=== PATIENT | female | born 1975 | race Caucasian/White ===

== ENCOUNTER 2016-11-11 06:53 | Emergency (ER) | payer OTHER, BC ==
[2016-11-11] MEDS ORDERED: HYDROcodone/APAP 5-325MG 1 EACH TAB PO STA (07:29)
[2016-11-11] MEDS ORDERED: IBUPROFEN 800 MG TAB PO STA (07:29)
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
[2016-11-11 10:00] VITALS: BP 122/86; PULSE 80; RESP 20; TEMP 97.5
== END 2016-11-11 09:55 | disposition home or self-care (01) ==
LOC: EC 06:53
DX: T14.8 Other injury of unspecified body region (principal); K21.9 Gastro-esophageal reflux disease without esophagitis; F31.9 Bipolar disorder, unspecified; Z79.899 Other long term (current) drug therapy; V43.52XA Car driver injured in collision with other type car in traffic accident, initial encounter; Y92.410 Unspecified street and highway as the place of occurrence of the external cause
CPT/HCPCS: 70450; 72125; 72128; 99284

== ENCOUNTER 2021-09-27 08:31 | Observation (INO) | payer BC ==
[2021-09-27 09:09] LABS: Glucose,Whole Blood 98 mg/dL (75-99)
[2021-09-27 09:41] LABS: Basophils % (A) 0 %; Eosinophils # (A) 0.2 k/uL (0-0.7); Eosinophils % (A) 3 %; HCT 37.5 % (34.0-46.0); HGB 12.5 gm/dL (11.4-16.0); Lymphocytes % (A) 31 %; MCH 30.9 pg (25.0-35.0); MCHC 33.2 g/dL (31.0-37.0); Mean Platelet Volume 6.7; Monocytes # (A) 0.2 k/uL (0-1.0); Monocytes % (A) 4 %; Neutrophils # (A) 3.8 k/uL (1.3-7.7); Neutrophils % (A) 61 %; Platelet Count 266 k/uL (150-450); RBC 4.04 m/uL (3.80-5.40); RDW 13.5 % (11.5-15.5); WBC 6.3 k/uL (3.8-10.6)
[2021-09-27 09:55] LABS: ALT 24 U/L (4-34); AST 27 U/L (14-36); African American GFR (CKD) 89 (>60 ml/min/1.73 sqM); Alcohol <10 mg/dL; Alkaline Phosphatase 91 U/L (38-126); Anion Gap 6 mmol/L; Blood Urea Nitrogen 16 mg/dL (7-17); Calcium 9.1 mg/dL (8.4-10.2); Carbon Dioxide 30 mmol/L (22-30); Chloride 100 mmol/L (98-107); Glucose 97 mg/dL (74-99); Non-African American GFR(CKD) 77 (>60 ml/min/1.73 sqM); Potassium 4.2 mmol/L (3.5-5.1); Sodium 136 mmol/L (137-145); Total Bilirubin 0.5 mg/dL (0.2-1.3); Total Protein 6.7 g/dL (6.3-8.2)
[2021-09-27 10:06] LABS: Appearance,Urine Clear (Clear); Bilirubin,Urine Negative (Negative); Blood,Urine Negative (Negative); Color,Urine Yellow; Glucose,Urine (UA) Negative (Negative); Ketones,Urine Negative (Negative); Leukocyte Esterase,Urine Negative (Negative); Nitrite,Urine Negative (Negative); PH, Urine 6.5 (5.0-8.0); Protein,Urine Negative (Negative); Specific Gravity,Urine 1.025 (1.001-1.035); Urobilinogen,Urine <2.0 mg/dL (<2.0)
[2021-09-27 10:07] LABS: INR 0.9 (<1.2); Prothrombin Time 9.6 sec (9.0-12.0)
--- NOTE | 2021-09-27 10:07 | CT ---
EXAMINATION TYPE: CT brain wo con DATE OF EXAM: 09/27/2021 COMPARISON: 11/11/2016 HISTORY: altered mental status CT DLP: 1068.4 mGycm. Automated Exposure Control for Dose Reduction was Utilized. TECHNIQUE: CT scan of the head is performed without contrast. FINDINGS: There is no acute intracranial hemorrhage, mass effect, or midline shift identified. The ventricles and sulci are within normal limits in size. The globes are intact and the visualized sin uses are clear. IMPRESSION: No acute intracranial hemorrhage, mass effect, or midline shift is seen.
--- NOTE | 2021-09-27 10:08 | XR ---
EXAMINATION TYPE: XR chest 2V DATE OF EXAM: 09/27/2021 COMPARISON: 07/17/2012 HISTORY: Altered mental status TECHNIQUE: Frontal and lateral views of the chest are obtained. FINDINGS: There is no focal air space opacity, pleural effusion, or pneumothorax seen. The cardiac silhouette size is within normal limits. The osseous structures are intact. IMPRESSION: No acute cardiopulmonary process.
[2021-09-27 10:12] LABS: Partial Thromboplastin Time 21.7 sec (22.0-30.0)
[2021-09-27 10:25] LABS: Amphetamine Screen,Urine Not Detected (NotDetected); Barbiturate Screen,Urine Not Detected (NotDetected); Benzodiazepines Screen,Urine Detected (NotDetected); Cocaine Screen,Urine Not Detected (NotDetected); Methadone Screen, Urine Not Detected (NotDetected); Opiate Screen,Urine Not Detected (NotDetected); Oxycodone Screen, Urine Not Detected (NotDetected); Phencyclidine Screen,Urine Not Detected (NotDetected); Tricyclic Antidepressant,Urine Not Detected (NotDetected); Urn Cannabinoid Scrn Not Detected (NotDetected)
--- NOTE | 2021-09-27 10:29 | ED ---
General Adult HPI - General Chief complaint: Weakness Stated complaint: AMS Time Seen by Provider: 09/27/21 08:45 Source: patient, EMS, RN notes reviewed, old records reviewed Mode of arrival: EMS Limitations: no limitations - History of Present Illness Initial comments: This is a 46-year-old female presents emergency Department with her kids she comes via EMS. Patient states something drawn which she is unable to describe it. Her children however state that she is altered mentally. She is just not acting like herself and acting almost childlike. They state yesterday she was acting normal except that she was extremely dizzy and today when she woke up she was altered and hyperverbal and not really grasping what was going on around her but able to answer all questions appropriately they noticed no facial droop they noticed weakness patient did have difficulty walking because he stated she felt dizzy. Patient has no headache patient has no pain. - Related Data Home Medications Medication Instructions Recorded Confirmed FLUoxetine HCL [Fluoxetine HCl] 20 mg PO HS 03/26/14 11/11/16 lamoTRIgine [Lamotrigine] 200 mg PO BID 03/26/14 11/11/16 FLUoxetine HCL [PROzac] 40 mg PO DAILY 11/11/16 11/11/16 Allergies Allergy/AdvReac Type Severity Reaction Status Date / Time No Known Drug Allergies Allergy Unknown Verified 11/11/16 08:02 Review of Systems ROS Statement: Those systems with pertinent positive or pertinent negative responses have been documented in the HPI. ROS Other: All systems not noted in ROS Statement are negative. Past Medical History Past Medical History: GERD/Reflux Additional Past Medical History / Comment(s): Anemia (1 week post-transfusion), gullian barre, being tested for MG History of Any Multi-Drug Resistant Organisms: None Reported Past Surgical History: Tonsillectomy Additional Past Surgical History / Comment(s): ablation Past Psychological History: Bipolar, Depression Smoking Status: Never smoker Past Alcohol Use History: None Reported Past Drug Use History: None Reported General Exam - General Exam Comments Initial Comments: GENERAL: Patient is well-developed and well-nourished. Patient is nontoxic and well- hydrated and is in acute distress. ENT: Neck is soft and supple. No significant lymphadenopathy is noted. Oropharynx is clear. Moist mucous membranes. Neck has full range of motion without eliciting any pain. EYES: The sclera were anicteric and conjunctiva were pink and moist. Extraocular movements were intact and pupils were equal round and reactive to light. Eyelids were unremarkable. PULMONARY: Unlabored respirations. Good breath sounds bilaterally. No audible rales rhonchi or wheezing was noted. CARDIOVASCULAR: There is a regular rate and rhythm without any murmurs gallops or rubs. ABDOMEN: Soft and nontender with normal bowel sounds. SKIN: Skin is clear with no lesions or rashes and otherwise unremarkable. NEUROLOGIC: Patient is alert and oriented x3. Cranial nerves II through XII are grossly intact. Motor and sensory are also intact. Normal speech, volume and content. Symmetrical smile. Cerebellar testing finger to nose was normal bilaterally MUSCULOSKELETAL: Normal extremities with adequate strength and full range of motion. LYMPHATICS: No significant lymphadenopathy is noted PSYCHIATRIC: Patient is hyperverbal and seems somewhat disconnected from what is going on around her however she is able to answer all questions. Limitations: no limitations Course Vital Signs 09/27/21 08:47 Temperature 98.2 F Pulse Rate 92 Respiratory 18 Rate Blood Pressure 108/58 O2 Sat by Pulse 98 Oximetry Medical Decision Making - Medical Decision Making Chest x-ray shows no acute abnormality. CT of the brain shows no acute abnormality. EKG shows sinus rhythm at 90 bpm ND interval is on a 36 QRS is 80 QT interval 377 QTC is 424. Patient's EKG shows no ST segment elevation or depression. - Lab Data Result diagrams: 09/27/21 09:05 09/27/21 09:05 Lab Results 09/27/21 09/27/21 09/27/21 Range/Units 09:05 09:05 09:05 WBC 6.3 (3.8-10.6) k/uL RBC 4.04 (3.80-5.40) m/uL Hgb 12.5 (11.4-16.0) gm/dL Hct 37.5 (34.0-46.0) % MCV 93.0 (80.0-100.0) fL MCH 30.9 (25.0-35.0) pg MCHC 33.2 (31.0-37.0) g/dL RDW 13.5 (11.5-15.5) % Plt Count 266 (150-450) k/uL MPV 6.7 Neutrophils % 61 % Lymphocytes % 31 % Monocytes % 4 % Eosinophils % 3 % Basophils % 0 % Neutrophils # 3.8 (1.3-7.7) k/uL Lymphocytes # 2.0 (1.0-4.8) k/uL Monocytes # 0.2 (0-1.0) k/uL Eosinophils # 0.2 (0-0.7) k/uL Basophils # 0.0 (0-0.2) k/uL PT 9.6 (9.0-12.0) sec INR 0.9 (<1.2) APTT 21.7 L (22.0-30.0) sec Sodium 136 L (137-145) mmol/L Potassium 4.2 (3.5-5.1) mmol/L Chloride 100 (98-107) mmol/L Carbon Dioxide 30 (22-30) mmol/L Anion Gap 6 mmol/L BUN 16 (7-17) mg/dL Creatinine 0.89 (0.52-1.04) mg/dL Est GFR (CKD-EPI)AfAm 89 (>60 ml/min/1.73 sqM) Est GFR (CKD-EPI)NonAf 77 (>60 ml/min/1.73 sqM) Glucose 97 (74-99) mg/dL POC Glucose (mg/dL) (75-99) mg/dL POC Glu Site Planner ID Calcium 9.1 (8.4-10.2) mg/dL Total Bilirubin 0.5 (0.2-1.3) mg/dL AST 27 (14-36) U/L ALT 24 (4-34) U/L Alkaline Phosphatase 91 (38-126) U/L Ammonia (<30) umol/L Troponin I (0.000-0.034) ng/mL Total Protein 6.7 (6.3-8.2) g/dL Albumin 4.0 (3.5-5.0) g/dL Urine Color Urine Appearance (Clear) Urine pH (5.0-8.0) Ur Specific [place] (1.001-1.035) Urine Protein (Negative) Urine Glucose (UA) (Negative) Urine Ketones (Negative) Urine Blood (Negative) Urine Nitrite (Negative) Urine Bilirubin (Negative) Urine Urobilinogen (<2.0) mg/dL Ur Leukocyte Esterase (Negative) Urine Opiates Screen (NotDetected) Ur Oxycodone Screen (NotDetected) Urine Methadone Screen (NotDetected) Ur Propoxyphene Screen (NotDetected) Ur Barbiturates Screen (NotDetected) U Tricyclic Antidepress (NotDetected) Ur Phencyclidine Scrn (NotDetected) Ur Amphetamines Screen (NotDetected) U Methamphetamines Scrn (NotDetected) U Benzodiazepines Scrn (NotDetected) Urine Cocaine Screen (NotDetected) U Marijuana (THC) Screen (NotDetected) Serum Alcohol <10 mg/dL 09/27/21 09/27/21 09/27/21 Range/Units 09:05 09:05 09:08 WBC (3.8-10.6) k/uL RBC (3.80-5.40) m/uL Hgb (11.4-16.0) gm/dL Hct (34.0-46.0) % MCV (80.0-100.0) fL MCH (25.0-35.0) pg MCHC (31.0-37.0) g/dL RDW (11.5-15.5) % Plt Count (150-450) k/uL MPV Neutrophils % % Lymphocytes % % Monocytes % % Eosinophils % % Basophils % % Neutrophils # (1.3-7.7) k/uL Lymphocytes # (1.0-4.8) k/uL Monocytes # (0-1.0) k/uL Eosinophils # (0-0.7) k/uL Basophils # (0-0.2) k/uL PT (9.0-12.0) sec INR (<1.2) APTT (22.0-30.0) sec Sodium (137-145) mmol/L Potassium (3.5-5.1) mmol/L Chloride (98-107) mmol/L Carbon Dioxide (22-30) mmol/L Anion Gap mmol/L BUN (7-17) mg/dL Creatinine (0.52-1.04) mg/dL Est GFR (CKD-EPI)AfAm (>60 ml/min/1.73 sqM) Est GFR (CKD-EPI)NonAf (>60 ml/min/1.73 sqM) Glucose (74-99) mg/dL POC Glucose (mg/dL) 98 (75-99) mg/dL POC Glu Site Planner ID Andrey Ayers Calcium (8.4-10.2) mg/dL Total Bilirubin (0.2-1.3) mg/dL AST (14-36) U/L ALT (4-34) U/L Alkaline Phosphatase (38-126) U/L Ammonia <9 (<30) umol/L Troponin I <0.012 (0.000-0.034) ng/mL Total Protein (6.3-8.2) g/dL Albumin (3.5-5.0) g/dL Urine Color Urine Appearance (Clear) Urine pH (5.0-8.0) Ur Specific [place] (1.001-1.035) Urine Protein (Negative) Urine Glucose (UA) (Negative) Urine Ketones (Negative) Urine Blood (Negative) Urine Nitrite (Negative) Urine Bilirubin (Negative) Urine Urobilinogen (<2.0) mg/dL Ur Leukocyte Esterase (Negative) Urine Opiates Screen (NotDetected) Ur Oxycodone Screen (NotDetected) Urine Methadone Screen (NotDetected) Ur Propoxyphene Screen (NotDetected) Ur Barbiturates Screen (NotDetected) U Tricyclic Antidepress (NotDetected) Ur Phencyclidine Scrn (NotDetected) Ur Amphetamines Screen (NotDetected) U Methamphetamines Scrn (NotDetected) U Benzodiazepines Scrn (NotDetected) Urine Cocaine Screen (NotDetected) U Marijuana (THC) Screen (NotDetected) Serum Alcohol mg/dL 09/27/21 Range/Units 09:31 WBC (3.8-10.6) k/uL RBC (3.80-5.40) m/uL Hgb (11.4-16.0) gm/dL Hct (34.0-46.0) % MCV (80.0-100.0) fL MCH (25.0-35.0) pg MCHC (31.0-37.0) g/dL RDW (11.5-15.5) % Plt Count (150-450) k/uL MPV Neutrophils % % Lymphocytes % % Monocytes % % Eosinophils % % Basophils % % Neutrophils # (1.3-7.7) k/uL Lymphocytes # (1.0-4.8) k/uL Monocytes # (0-1.0) k/uL Eosinophils # (0-0.7) k/uL Basophils # (0-0.2) k/uL PT (9.0-12.0) sec INR (<1.2) APTT (22.0-30.0) sec Sodium (137-145) mmol/L Potassium (3.5-5.1) mmol/L Chloride (98-107) mmol/L Carbon Dioxide (22-30) mmol/L Anion Gap mmol/L BUN (7-17) mg/dL Creatinine (0.52-1.04) mg/dL Est GFR (CKD-EPI)AfAm (>60 ml/min/1.73 sqM) Est GFR (CKD-EPI)NonAf (>60 ml/min/1.73 sqM) Glucose (74-99) mg/dL POC Glucose (mg/dL) (75-99) mg/dL POC Glu Site Planner ID Calcium (8.4-10.2) mg/dL Total Bilirubin (0.2-1.3) mg/dL AST (14-36) U/L ALT (4-34) U/L Alkaline Phosphatase (38-126) U/L Ammonia (<30) umol/L Troponin I (0.000-0.034) ng/mL Total Protein (6.3-8.2) g/dL Albumin (3.5-5.0) g/dL Urine Color Yellow Urine Appearance Clear (Clear) Urine pH 6.5 (5.0-8.0) Ur Specific [place] 1.025 (1.001-1.035) Urine Protein Negative (Negative) Urine Glucose (UA) Negative (Negative) Urine Ketones Negative (Negative) Urine Blood Negative (Negative) Urine Nitrite Negative (Negative) Urine Bilirubin Negative (Negative) Urine Urobilinogen <2.0 (<2.0) mg/dL Ur Leukocyte Esterase Negative (Negative) Urine Opiates Screen Not Detected (NotDetected) Ur Oxycodone Screen Not Detected (NotDetected) Urine Methadone Screen Not Detected (NotDetected) Ur Propoxyphene Screen Not Detected (NotDetected) Ur Barbiturates Screen Not Detected (NotDetected) U Tricyclic Antidepress Not Detected (NotDetected) Ur Phencyclidine Scrn Not Detected (NotDetected) Ur Amphetamines Screen Not Detected (NotDetected) U Methamphetamines Scrn Not Detected (NotDetected) U Benzodiazepines Scrn Detected H (NotDetected) Urine Cocaine Screen Not Detected (NotDetected) U Marijuana (THC) Screen Not Detected (NotDetected) Serum Alcohol mg/dL Disposition Clinical Impression: Altered mental status Disposition: ADMITTED IP TO THIS HOSP Referrals: Modesto Bowman MD [Primary Care Provider] - 1-2 days Time of Disposition: 10:29
[2021-09-27] MEDS ORDERED: SODIUM CHLORIDE 0.9% 1,000 ML IV ONE (11:00)
[2021-09-27] MEDS: PYRIDOSTIGMINE 60 MG TAB PO SCH (13:25)
[2021-09-27] MEDS ORDERED: NALOXONE 0.4 MG/ML 1 ML VIAL IV PRN (14:29)
[2021-09-27] MEDS ORDERED: MELATONIN 3 MG TABLET PO PRN (14:29)
[2021-09-27] MEDS ORDERED: ONDANSETRON 4 MG/2 ML VIAL IVP PRN (14:29)
[2021-09-27] MEDS ORDERED: ACETAMINOPHEN TAB 500 MG TAB PO PRN (14:36)
[2021-09-27] MEDS ORDERED: IBUPROFEN 400 MG TAB PO PRN (14:36)
--- NOTE | 2021-09-27 14:49 | P.HPIM ---
History of Present Illness H&P Date: 09/27/21 Chief Complaint: Dizziness and slurred speech This is a 46-year-old female presents emergency Department with her 2 children she comes via EMS. Patient states something drawn which she is unable to describe it. Her children however state that she is altered mentally. She is just not acting like herself and acting almost childlike. They state yesterday she was acting normal except that she was extremely dizzy and today when she woke up she was altered and hyperverbal and not really grasping what was going on around her but able to answer all questions appropriately they noticed no facial droop they noticed weakness patient did have difficulty walking because he stated she felt dizzy. Patient has no headache patient has no pain. She denies any chest pain or shortness of breath. She stated that she also have vertigo plus dizziness. Denies any fever or chills patient developed abdominal pain patient denies any nausea vomiting diarrhea or constipation. Denies any blood in the stool and urine. Review of Systems All 14 review of systems evaluated and all negative except for above. Past Medical History Past Medical History: GERD/Reflux Additional Past Medical History / Comment(s): Anemia (1 week post-transfusion), gullian barre, being tested for MG History of Any Multi-Drug Resistant Organisms: None Reported Past Surgical History: Tonsillectomy Additional Past Surgical History / Comment(s): ablation Past Psychological History: Bipolar, Depression Smoking Status: Never smoker Past Alcohol Use History: None Reported Past Drug Use History: None Reported Medications and Allergies Home Medications Medication Instructions Recorded Confirmed Type FLUoxetine HCL [Fluoxetine HCl] 20 mg PO HS 03/26/14 09/27/21 History FLUoxetine HCL [PROzac] 40 mg PO DAILY 11/11/16 09/27/21 History Acetaminophen [Tylenol] 1,000 mg PO Q4-6H PRN 09/27/21 09/27/21 History Ascorbic Acid [Vitamin C] 1,000 mg PO DAILY 09/27/21 09/27/21 History Cholecalciferol [Vitamin D3 (25 25 mcg PO DAILY 09/27/21 09/27/21 History Mcg = 1000 Iu)] Cyanocobalamin [Vitamin B-12 1,000 mcg SQ Q30D 09/27/21 09/27/21 History Injection] Ibuprofen [Motrin Ib] 800 mg PO Q8H PRN 09/27/21 09/27/21 History Omeprazole [PriLOSEC] 20 mg PO DAILY 09/27/21 09/27/21 History Vitamin B Complex 1 cap PO DAILY 09/27/21 09/27/21 History lamoTRIgine [LaMICtal] 200 mg PO BID 09/27/21 09/27/21 History Allergies Allergy/AdvReac Type Severity Reaction Status Date / Time No Known Drug Allergies Allergy Unknown Verified 09/27/21 11:02 Physical Exam Vitals: Vital Signs Temp Pulse Pulse Resp BP BP Pulse Ox 09/27/21 14:19 97.8 F 84 16 105/61 93 L 09/27/21 13:34 98.7 F 87 16 112/60 98 09/27/21 13:00 98.0 F 86 20 116/80 99 09/27/21 12:00 98.0 F 90 16 118/78 97 09/27/21 08:47 98.2 F 92 18 108/58 98 Intake and Output 09/26/21 09/27/21 09/27/21 22:59 06:59 14:59 Other: Weight 99.79 kg General: non toxic, no distress, appears at stated age Derm: warm, dry Head: atraumatic, normocephalic, symmetric Eyes: EOMI, no lid lag, anicteric sclera Mouth: no lip lesion, mucus membranes moist Cardiovascular: S1S2 reg, no murmur, positive posterior tibial pulse bilateral, Lungs: CTA bilateral, no rhonchi, no rales , no accessory muscle use Abdominal: soft, nontender to palpation, no guarding, no appreciable organomegaly Ext: no gross muscle atrophy, no edema, no contractures Neuro: CN II-XI grossly intact, no focal neuro deficits Psych: Alert, oriented, appropriate affect Results CBC & Chem 7: 09/27/21 09:05 09/27/21 09:05 Labs: Abnormal Lab Results - Last 24 Hours (Table) 09/27/21 09/27/21 09/27/21 Range/Units 09:05 09:05 09:31 APTT 21.7 L (22.0-30.0) sec Sodium 136 L (137-145) mmol/L U Benzodiazepines Scrn Detected H (NotDetected) Thrombosis Risk Factor Assmnt - Choose All That Apply Any of the Below Risk Factors Present?: Yes Each Factor Represents 1 point: Age 41-60 years Other Risk Factors: No Thrombosis Risk Factor Assessment Total Risk Factor Score: 1 Thrombosis Risk Factor Assessment Level: Low Risk Assessment and Plan Assessment: Assessment and plan: #An episode of slurred speech and dizziness -Need to rule out TIA versus stroke -She started on aspirin and high-dose statins -CT of the head without contrast unremarkable -MRI of the brain without contrast -Neuro consultation -Lipid panel, TSH, A1c -2-D echo and carotid Doppler -Neuro check every 4 hours #Bipolar disorder -Resume home medications -Consult psychiatry #History of myasthenia gravis -Patient noncompliant with Mestinon #Dizziness -It could be secondary to TIA versus side effect from psych medications -Check orthostatics every shift -Psychiatry consulted to manage psych medications #DVT prophylaxis with Lovenox
[2021-09-27] MEDS: ACETAMINOPHEN TAB 325 MG TAB PO PRN (15:02)
--- NOTE | 2021-09-27 15:50 | US ---
EXAMINATION TYPE: US carotid duplex BILAT DATE OF EXAM: 09/27/2021 COMPARISON: NONE CLINICAL HISTORY: tia. EXAM MEASUREMENTS: RIGHT: Peak Systolic Velocity (PSV) cm/sec ----- Right CCA: 95.5 ----- Right ICA: 108 ----- Right ECA: 79.3 ICA/CCA ratio: 1.13 RIGHT: End Diastole cm/sec ----- Right CCA: 27.9 ----- Right ICA: 61 ----- Right ECA: 17.5 LEFT: Peak Systolic Velocity (PSV) cm/sec ----- Left CCA: 90.8 ----- Left ICA: 122 ----- Left ECA: 105 ICA/CCA ratio: 1.35 LEFT: End Diastole cm/sec ----- Left CCA: 27.1 ----- Left ICA: 50.5 ----- Left ECA: 24.2 VERTEBRALS (direction of flow): Right Vertebral: Antegrade Left Vertebral: Antegrade Rhythm: Normal Minimal atherosclerotic changes with no significant velocity increases seen bilaterally. IMPRESSION: There is antegrade flow in the vertebral arteries. The images and measurements suggest less than 15% stenosis in both internal carotid arteries. Criteria for Assigning % of Stenosis / Diameter reduction (Estimation based on the indirect measurements of the internal carotid artery velocities (ICA PSV). 1. Normal (no stenosis)=ICA PSV < 125 cm/s: ratio < 2.0: ICA EDV<40 cm/s. 2. Less than 50% stenosis=ICA PSV < 125 cm/s: ratio < 2.0: ICA EDV<40 cm/s. 3. 50 to 69% stenosis=ICA PSV of 125 to 230 cm/s: ration 2.0 ? 4.0: ICA EDV 40-100 cm/s. 4. Greater than 70% stenosis to near occlusion= ICA PSV > 230 cm/s: ratio > 4.0: ICA EDV > 100 cm/s. 5. Near occlusion= ICA PSV velocities may be low or undetectable: variable ratio and ICA EDV. 6. Total occlusion=unable to detect flow.
[2021-09-27] MEDS: ASPIRIN 325 MG TAB PO SCH (15:59)
[2021-09-27] MEDS: ATORVASTATIN 40 MG TAB PO SCH (15:59)
[2021-09-27] MEDS ORDERED: CYANOCOBALAMIN 1,000 MCG/ML 1 ML VIAL SQ SCH (16:00)
--- NOTE | 2021-09-27 17:32 | P.CNNES ---
History of Present Illness Consult date: 09/27/21 History of Present Illness: The patient is a 46-year-old female who is seen in neurologic consultation on September 27, 2021, via tele-neurology. The patient is seen in the emergency department. Her son and [id number] present at the bedside at the time of the evaluation. Patient reports that when she awoke this morning she had slurred speech. She also reports that she was extremely dizzy. She reports feeling a spinning sensation. In addition, the patient was very nauseated. She sets that when she opened her eyes she felt as if she would throw up. Apparently the patient had some difficulty with her balance, intermittently, this past . She was able to continue to do her job. On Wednesday, she also had intermittent difficulty with balance. This morning, is when her symptoms worsened significantly. The patient reports that anytime she attempted to open her eyes or to sit up or stand up she experienced a severe spinning sensation. She says that she was better when laying down. She did notice an increase in symptoms with movement of her head. The patient denies tinnitus. In addition to blurred vision this morning, patient also reports having diplopia. Patient's daughter reports that the patient was acting "weird". She was able to answer questions. She was reportedly slurring her speech and was sweating. The patient reports that she is being treated for myasthenia gravis. She had been taking Mestinon daily however because of side effects, this medication was stopped. She reports that her neurologist advised that she could take the medication as needed. According to the emergency department note, as well as the history and physical note, the patient was reportedly not acting like her usual self. She was reportedly hyperverbal and seemed to be unaware of what was going on around her. CT scan of the brain performed in the emergency department revealed no signs of acute hemorrhage or infarct. Chest x-ray was normal. Review of Systems Negative except for that noted in the history of chief complaint Past Medical History Past Medical History: GERD/Reflux Additional Past Medical History / Comment(s): Anemia (1 week post-transfusion), gullian barre, being tested for MG History of Any Multi-Drug Resistant Organisms: None Reported Past Surgical History: Tonsillectomy Additional Past Surgical History / Comment(s): ablation Past Psychological History: Bipolar, Depression Smoking Status: Never smoker Past Alcohol Use History: None Reported Past Drug Use History: None Reported Medications and Allergies Home Medications Medication Instructions Recorded Confirmed Type FLUoxetine HCL [Fluoxetine HCl] 20 mg PO HS 03/26/14 09/27/21 History FLUoxetine HCL [PROzac] 40 mg PO DAILY 11/11/16 09/27/21 History Acetaminophen [Tylenol] 1,000 mg PO Q4-6H PRN 09/27/21 09/27/21 History Ascorbic Acid [Vitamin C] 1,000 mg PO DAILY 09/27/21 09/27/21 History Cholecalciferol [Vitamin D3 (25 25 mcg PO DAILY 09/27/21 09/27/21 History Mcg = 1000 Iu)] Cyanocobalamin [Vitamin B-12 1,000 mcg SQ Q30D 09/27/21 09/27/21 History Injection] Ibuprofen [Motrin Ib] 800 mg PO Q8H PRN 09/27/21 09/27/21 History Omeprazole [PriLOSEC] 20 mg PO DAILY 09/27/21 09/27/21 History Vitamin B Complex 1 cap PO DAILY 09/27/21 09/27/21 History lamoTRIgine [LaMICtal] 200 mg PO BID 09/27/21 09/27/21 History Allergies Allergy/AdvReac Type Severity Reaction Status Date / Time No Known Drug Allergies Allergy Unknown Verified 09/27/21 11:02 Physical Examination - Vital Signs Vital Signs: Vital Signs Temp Pulse Resp BP Pulse Ox 09/27/21 08:47 98.2 F 92 18 108/58 98 Intake and Output 09/26/21 09/27/21 09/27/21 22:59 06:59 14:59 Other: Weight 99.79 kg Gen.: Patient is well-nourished, well-developed and in no acute distress. HEENT: Head is atraumatic, normocephalic. Fundus not visualized. There is no scleral icterus. Mucous membranes are moist. Neck: Supple without carotid bruits Heart: Regular rate and rhythm Lungs: Clear to auscultation. Patient has a good, strong cough reflex Extremities: Without edema Neurological examination Mental status: The patient is awake, alert and oriented 3. Her speech is clear. There is no dysarthria or aphasia. Cranial nerves: Pupils are equal at 3 mm and reactive to light. She'll duran are full to confrontation. Extraocular movements are intact. There is slight nystagmus with far left lateral gaze. Facial sensations intact. There is no facial asymmetry. There is bilateral ptosis. Uvula and palate are midline. Shoulder shrug is symmetric. Tongue protrudes midline. Motor: Strength of neck flexion and extension is diminished. Shoulder shrug strength is diminished. Bilateral biceps strength 4/5. Triceps 4+/5. Bilateral hip extensors 5/5. Hip flexors 4/5. Ankle plantar and dorsiflexors 5/5. There is increased ptosis with sustained upward gaze. Coordination: Finger to nose, heel to hare and rapid alternating movements are intact. Deep tendon reflexes: 2-3+/4+ in the upper extremities. 2+/4+ at the knees. Gait: Not assessed Results - Laboratory Findings CBC and BMP: 09/27/21 09:05 09/27/21 09:05 Abnormal Lab Findings: Abnormal Labs 09/27/21 09/27/21 09/27/21 09:05 09:05 09:31 APTT 21.7 L Sodium 136 L U Benzodiazepines Scrn Detected H Assessment and Plan Assessment: 1. Benign positional vertigo 2. Worsening/mild exacerbation of myasthenia gravis 3. ? Exacerbation of psychiatric symptoms as an explanation for the patient's reported hyperverbal state Plan: 1. MRI of brain without gadolinium 2. Will start patient on Mestinon 30 mg daily 3. Consult physical therapy for strengthening 4. Consider psychiatry evaluation 5. Neurology will see patient again tomorrow, to assess results of Mestinon 6. Agree with stroke workup which has been initiated Thank you for allowing us to participate in care of this very nice lady Time with Patient: Greater than 30 (spent 40 minutes with patient via telemedicine)
[2021-09-27] MEDS: lamoTRIgine 100 MG TAB PO SCH (19:04)
[2021-09-27] MEDS: FLUoxetine HCL 20 MG CAP PO SCH (19:04)
[2021-09-28] MEDS: PANTOPRAZOLE 40 MG TABLET PO SCH (08:31)
[2021-09-28] MEDS: lamoTRIgine 100 MG TAB PO SCH ×2 (08:31→20:49)
[2021-09-28] MEDS: CHOLECALCIFEROL 25 MCG (1000 IU) TABLET PO SCH (08:31)
[2021-09-28] MEDS: ASPIRIN 325 MG TAB PO SCH (08:31)
[2021-09-28] MEDS: PYRIDOSTIGMINE 60 MG TAB PO SCH (08:31)
[2021-09-28] MEDS: FLUoxetine HCL 20 MG CAP PO SCH ×2 (08:31→20:49)
[2021-09-28] MEDS: ASCORBIC ACID 500 MG TAB PO SCH (08:31)
[2021-09-28] MEDS: ATORVASTATIN 40 MG TAB PO SCH (08:31)
[2021-09-28] MEDS: ENOXAPARIN 40 MG/0.4 ML SYRINGE SQ SCH (08:32)
[2021-09-28] MEDS: ACETAMINOPHEN TAB 325 MG TAB PO PRN (08:36)
[2021-09-28] MEDS ORDERED: NON FORMULARY DRUG (Vitamin B Complex [Vitamin B Complex] 1 EACH Capsule) PO SCH (09:00)
[2021-09-28 09:19] LABS: Basophils # (A) 0.03 X 10*3/uL (0.00-0.10); Basophils % (A) 0.5 %; Eosinophils # (A) 0.14 X 10*3/uL (0.04-0.35); Eosinophils % (A) 2.5 %; HCT 36.1 % (37.2-46.3); HGB 11.7 g/dL (12.0-15.0); Immature Grans, Automated 0.4 %; Lymphocytes # (A) 1.87 X 10*3/uL (0.90-5.00); Lymphocytes % (A) 33.8 %; MCH 29.9 pg (27.0-32.0); MCHC 32.4 g/dL (32.0-37.0); MCV 92.3 fL (80.0-97.0); Mean Platelet Volume 9.3 fL (9.5-12.2); Monocytes # (A) 0.43 X 10*3/uL (0.20-1.00); Monocytes % (A) 7.8 %; NRBC Per 100 WBC 0 /100 WBCS (0.0-0.0); Neutrophils # (A) 3.05 X 10*3/uL (1.80-7.70); Platelet Count 255 X 10*3/uL (140-440); RBC 3.91 X 10*6/uL (4.10-5.20); RDW 14.1 % (11.5-14.5); WBC 5.54 X 10*3/uL (4.50-10.00)
[2021-09-28 09:31] LABS: African American GFR (CKD) 96.5 (60.0-200.0); Albumin/Globulin Ratio 2.2 (1.60-3.17); BUN/Creat Ratio 12.64 Ratio (12.00-20.00); Blood Urea Nitrogen 10.5 mg/dL (9.0-27.0); Calcium 9.2 mg/dL (8.7-10.3); Carbon Dioxide 25.4 mmol/L (20.0-27.5); Globulin 1.8 g/dL (1.6-3.3); HDL Cholesterol 72.7 mg/dL (40.00-60.00); Non-African American GFR(CKD) 83.3 (60.0-200.0); Potassium 4.4 mmol/L (3.5-5.5); Total Bilirubin 0.3 mg/dL (0.30-1.20); Total Protein 5.8 g/dL (6.2-8.2); Triglycerides 49.2 mg/dL (0.00-149.00)
[2021-09-28 09:43] LABS: Chol/HDL Ratio 2.46 Ratio; LDL Cholesterol,Direct Reflex 93.9 mg/dL (0.00-129.00)
--- NOTE | 2021-09-28 14:47 | P.PN ---
Subjective Progress Note Date: 09/28/21 The patient is seen in neurologic follow-up on September 28, 2021, via teleneurology. She reports feeling back to her baseline today. She says that she slept well. She continues feel slight weakness in her legs however, feels she is much better. In regards to her hyperverbal state of yesterday, the patient states that she was aware that she was talking quickly and a lot. She reports being unable to stop herself. The patient denies any side effects related to her current Mestinon dose of 30 mg daily Objective - Vital Signs Vital signs: Vital Signs Temp 97.9 F 09/28/21 08:03 Pulse 81 09/28/21 08:03 Resp 16 09/28/21 08:03 BP 104/63 09/28/21 08:03 Pulse Ox 96 09/28/21 08:03 Intake & Output 09/27/21 09/28/21 09/28/21 17:59 06:59 18:59 Weight Other: # Voids - Exam Gen.: The patient is reclining in the bed. She is well-nourished, well- developed and in no acute distress. HEENT: Head is atraumatic, normocephalic. Fundus not visualized. There is no scleral icterus. Mucous members are moist. Neurological examination Mental status: The patient is awake, alert and oriented 3. Her speech is clear. A voice is stronger today. Cranial nerves: Pupils are equal, round and reactive to light. Visual duran are full to confrontation. Extraocular movements are intact. There is no nystagmus. Facial sensation is intact. There is no facial asymmetry. There is no ptosis. Motor: Strength is 5/5 throughout. There is no ptosis with sustained upward gaze. - Labs CBC & Chem 7: 09/28/21 06:35 09/28/21 06:35 Labs: Abnormal Lab Results - Last 24 Hours (Table) 09/27/21 09/27/21 09/27/21 Range/Units 09:05 09:05 09:31 RBC (4.10-5.20) X 10*6/uL Hgb (12.0-15.0) g/dL Hct (37.2-46.3) % MPV (9.5-12.2) fL APTT 21.7 L (22.0-30.0) sec Sodium 136 L (137-145) mmol/L Anion Gap (10.00-18.00) mmol/L Total Protein (6.2-8.2) g/dL HDL Cholesterol (40.00-60.00) mg/dL U Benzodiazepines Scrn Detected H (NotDetected) 09/28/21 09/28/21 Range/Units 06:35 06:35 RBC 3.91 L (4.10-5.20) X 10*6/uL Hgb 11.7 L (12.0-15.0) g/dL Hct 36.1 L (37.2-46.3) % MPV 9.3 L (9.5-12.2) fL APTT (22.0-30.0) sec Sodium (137-145) mmol/L Anion Gap 9.00 L (10.00-18.00) mmol/L Total Protein 5.8 L (6.2-8.2) g/dL HDL Cholesterol 72.70 H (40.00-60.00) mg/dL U Benzodiazepines Scrn (NotDetected) Assessment and Plan Assessment: 1. Benign positional vertigo 2. Worsening/mild exacerbation of myasthenia gravis 3. ? Exacerbation of psychiatric symptoms as an explanation for the patient's reported hyperverbal state 4. ? TIA-less likely Plan: 1. Further TIA workup can be done as outpatient, if okay with attending 2. Patient is neurologically stable for discharge. 3. She has been advised to continue taking aspirin and statin 4. The patient has been advised to continue taking Mestinon 30 mg daily and to follow up with her neurologist regarding her recent breakthrough in symptoms Time with Patient: Less than 30 (spent 20 minutes with the patient via telemedicine)
--- NOTE | 2021-09-28 16:01 | P.PN ---
Subjective Progress Note Date: 09/28/21 History of Present Illness H&P Date: 09/27/21 Chief Complaint: Dizziness and slurred speech This is a 46-year-old female presents emergency Department with her 2 children she comes via EMS. Patient states something drawn which she is unable to describe it. Her children however state that she is altered mentally. She is just not acting like herself and acting almost childlike. They state yesterday she was acting normal except that she was extremely dizzy and today when she woke up she was altered and hyperverbal and not really grasping what was going on around her but able to answer all questions appropriately they noticed no facial droop they noticed weakness patient did have difficulty walking because he stated she felt dizzy. Patient has no headache patient has no pain. She denies any chest pain or shortness of breath. She stated that she also have vertigo plus dizziness. Denies any fever or chills patient developed abdominal pain patient denies any nausea vomiting diarrhea or constipation. Denies any blood in the stool and urine. Interval history: Patient was seen and examined with that. She denies any chest pain or shortness of breath. She reports improvement in her symptom after she was started on Mestinon Objective - Vital Signs Vital signs: Vital Signs Temp 97.9 F 09/28/21 08:03 Pulse 81 09/28/21 08:03 Resp 16 09/28/21 08:03 BP 104/63 09/28/21 08:03 Pulse Ox 96 09/28/21 08:03 Intake & Output 09/27/21 09/28/21 09/28/21 17:59 06:59 18:59 Weight Other: # Voids 1 - Exam General: non toxic, no distress, appears at stated age Derm: warm, dry Head: atraumatic, normocephalic, symmetric Eyes: EOMI, no lid lag, anicteric sclera Mouth: no lip lesion, mucus membranes moist Cardiovascular: S1S2 reg, no murmur, positive posterior tibial pulse bilateral, Lungs: CTA bilateral, no rhonchi, no rales , no accessory muscle use Abdominal: soft, nontender to palpation, no guarding, no appreciable organomegaly Ext: no gross muscle atrophy, no edema, no contractures Neuro: CN II-XI grossly intact, no focal neuro deficits Psych: Alert, oriented, appropriate affect - Labs CBC & Chem 7: 03/13/22 06:35 09/28/21 06:35 Labs: Abnormal Lab Results - Last 24 Hours (Table) 09/28/21 09/28/21 Range/Units 06:35 06:35 RBC 3.91 L (4.10-5.20) X 10*6/uL Hgb 11.7 L (12.0-15.0) g/dL Hct 36.1 L (37.2-46.3) % MPV 9.3 L (9.5-12.2) fL Anion Gap 9.00 L (10.00-18.00) mmol/L Total Protein 5.8 L (6.2-8.2) g/dL HDL Cholesterol 72.70 H (40.00-60.00) mg/dL Assessment and Plan Assessment: Assessment and plan: #An episode of slurred speech and dizziness -Neurology thinks related to benign positional vertigo and possibly due to myasthenia gravis -Need to rule out TIA versus stroke -She started on aspirin and high-dose statins -CT of the head without contrast unremarkable -MRI of the brain without contrast-- -Neuro consultation -LDL 93.9, TSH unremarkable, A1c 5.7 -Carotid Doppler without stenosis. -Neuro check every 4 hours #Bipolar disorder -Resume home medications -Consult psychiatry #History of myasthenia gravis -Symptoms improved after starting Mestinon 30 mg daily -Patient noncompliant with Mestinon #Dizziness -It could be secondary to TIA versus side effect from psych medications -Psychiatry consulted to manage psych medications. #DVT prophylaxis with Lovenox
--- NOTE | 2021-09-28 17:49 | P.CN ---
Psychiatric Consult - . 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 She is admitted for strokelike symptoms and psychiatry is consulted for behavioral changes HPI: Patient was interviewed with family, in private, and family was also interviewed in private. Yesterday morning, patient began having strokelike symptoms. During this time, she began acting "goofy", begin laughing a lot, and was very hyperverbal. She was eventually taken to the hospital. Since being in the hospital, patient states that she feels like she is back to herself. Family agrees that she is back to herself. Patient states that she has been stable on Prozac and Lamictal for her bipolar 2 for many years. Patient denies any suicidal or homicidal ideations intent or plan. At this time patient denies any auditory or visual hallucinations. Patient denies any flight of ideas racing thoughts and increased in goal directed behavior. PAST PSYCHIATRIC HISTORY: Bipolar 2 disorder, on Prozac 40 daily and 20 at bedtime, Lamictal 200 twice a day. Reports stability on this regimen. 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 Fair hygiene and grooming. In no acute distress Behavior: Patient is seated without any agitated behavior. She is calm and cooperative Speech: Patient's speech is [fluent and nonpressured.] Mood/Affect: Patient reports their mood is euthymic, affect is congruent and full range Suicidality/Homicidality: Patient denies having any homicidal ideation intent or plan. [Denies any suicidal ideations intent or plan] Perceptions: Patient denies any visual hallucinations [and denies any auditory hallucinations] Though content/process: [There is no evidence of any delusional thought content and thought process is linear and goal-directed.] Memory and concentration: AOX3, grossly intact for the purposes of this session. Judgment and insight: Good STRENGTHS/WEAKNESSES: strength is that patient is [resilient, has stable job, and has a good support system]. INTELLECT: [average] IMPRESSIONS: Bipolar II disorder per history. The behavioral changes that were reported or transient in nature, and given the timeline in the onset of the symptoms, it appears to be related to her TIA/stroke symptoms. PLAN: -continue Prozac 40 mg daily and 20 mg qhs, and lamictal 200 mg bid -does not meet criteria for inpatient psychiatric hospitalization -psychiatrically cleared -psych will sign off] [] 09/28/21 17:43
[2021-09-28 22:05] VITALS: RESP 16
[2021-09-29 07:53] VITALS: BP 94/58; PULSE 82; TEMP 98.1
[2021-09-29] MEDS: ASCORBIC ACID 500 MG TAB PO SCH (09:00)
[2021-09-29] MEDS: lamoTRIgine 100 MG TAB PO SCH (09:00)
[2021-09-29] MEDS: ATORVASTATIN 40 MG TAB PO SCH (09:00)
[2021-09-29] MEDS: PANTOPRAZOLE 40 MG TABLET PO SCH (09:00)
[2021-09-29] MEDS: ASPIRIN 325 MG TAB PO SCH (09:00)
[2021-09-29] MEDS: CHOLECALCIFEROL 25 MCG (1000 IU) TABLET PO SCH (09:00)
[2021-09-29] MEDS: ENOXAPARIN 40 MG/0.4 ML SYRINGE SQ SCH (09:01)
[2021-09-29] MEDS: FLUoxetine HCL 20 MG CAP PO SCH (09:01)
[2021-09-29] MEDS: PYRIDOSTIGMINE 60 MG TAB PO SCH (09:12)
--- NOTE | 2021-09-29 10:16 | MR ---
MR brain without contrast HISTORY: Slurred speech Multiplanar multisequence imaging obtained through the brain There is no restricted diffusion. There is no hemorrhage or hydrocephalus. Brain signal is remarkable for some vague hyperintensity in the periventricular deep white matter, axial image 19-20, slightly asymmetric seen on inversion recovery T2-weighted sequences posteriorly. Corpus callosum, pituitary, cervical medullary junction, cerebellopontine angles are within normal limits. Mild mucosal disease p resent within the ethmoid air cells. Orbits show symmetric appearance. There are expected vascular fl ow voids. IMPRESSION: Some nonspecific white matter hyperintensity is present. Mild sinus disease.
--- NOTE | 2021-09-29 12:26 | P.DS ---
Providers Date of admission: 09/27/21 11:12 Expected date of discharge: 09/29/21 Attending physician: Marysol Moreland MD Consults: 09/27/21 11:00 Consult Physician Urgent Consulting Provider: Susie Saldaña Consult Reason/Comments: Altered mental status Do you want consulting provider notified?: Yes 09/27/21 11:11 Consult Physician Urgent Consulting Provider: Ramon Rowan Consult Reason/Comments: Altered mental status, history of bipolar Do you want consulting provider notified?: Yes Primary care physician: Modesto Bowman MD Hospital Course: History of Present Illness Chief Complaint: Dizziness and slurred speech This is a 46-year-old female presents emergency Department with her 2 children she comes via EMS. Patient states something drawn which she is unable to describe it. Her children however state that she is altered mentally. She is just not acting like herself and acting almost childlike. They state yesterday she was acting normal except that she was extremely dizzy and today when she woke up she was altered and hyperverbal and not really grasping what was going on around her but able to answer all questions appropriately they noticed no facial droop they noticed weakness patient did have difficulty walking because he stated she felt dizzy. Patient has no headache patient has no pain. She denies any chest pain or shortness of breath. She stated that she also have vertigo plus dizziness. Denies any fever or chills patient developed abdominal pain patient denies any nausea vomiting diarrhea or constipation. Denies any blood in the stool and urine. Physical examination on discharge: General: non toxic, no distress, appears at stated age Derm: warm, dry Head: atraumatic, normocephalic, symmetric Eyes: EOMI, no lid lag, anicteric sclera Mouth: no lip lesion, mucus membranes moist Cardiovascular: S1S2 reg, no murmur, positive posterior tibial pulse bilateral, Lungs: CTA bilateral, no rhonchi, no rales , no accessory muscle use Abdominal: soft, nontender to palpation, no guarding, no appreciable organomegaly Ext: no gross muscle atrophy, no edema, no contractures Neuro: CN II-XI grossly intact, no focal neuro deficits Psych: Alert, oriented, appropriate affect Hospital course in detail the problem list: #An episode of slurred speech and dizziness -Neurology thinks related to benign positional vertigo and possibly due to myasthenia gravis versus TIA -MRI negative for stroke -She started on aspirin and high-dose statins -CT of the head without contrast unremarkable -Neuro consultation. Neurologist recommended to resume Mestinon 30 mg daily and patient to follow-up with her primary neurologist as an outpatient. Neurology also recommended starting patient baby aspirin statins. -LDL 93.9, TSH unremarkable, A1c 5.7 -Carotid Doppler without stenosis. #Bipolar disorder -Resume home medications -Consult psychiatry #History of myasthenia gravis -Symptoms improved after starting Mestinon 30 mg daily -Patient noncompliant with Mestinon #Dizziness -Resolved -It could be secondary to TIA versus side effect from psych medications -Psychiatry consulted to manage psych medications. Patient Condition at Discharge: Stable Plan - Discharge Summary Discharge Rx Participant: No New Discharge Prescriptions: New Pyridostigmine [Mestinon] 30 mg PO DAILY 30 Days #30 tab Omeprazole 20 mg PO DAILY #30 cap Aspirin EC [Ecotrin Low Dose] 81 mg PO DAILY 30 Days #30 tab Atorvastatin [Lipitor] 20 mg PO DAILY 30 Days #30 tablet Continue FLUoxetine HCL [Fluoxetine HCl] 20 mg PO HS FLUoxetine HCL [PROzac] 40 mg PO DAILY Vitamin B Complex 1 cap PO DAILY Ascorbic Acid [Vitamin C] 1,000 mg PO DAILY Acetaminophen [Tylenol] 1,000 mg PO Q4-6H PRN PRN Reason: Pain Or Fever > 100.5 Cholecalciferol [Vitamin D3 (25 Mcg = 1000 Iu)] 25 mcg PO DAILY Cyanocobalamin [Vitamin B-12 Injection] 1,000 mcg SQ Q30D lamoTRIgine [LaMICtal] 200 mg PO BID Discontinued Ibuprofen [Motrin Ib] 800 mg PO Q8H PRN PRN Reason: Pain Or Fever > 100.5 Omeprazole [PriLOSEC] 20 mg PO DAILY Discharge Medication List FLUoxetine HCL [Fluoxetine HCl] 20 mg PO HS 03/26/14 [History] FLUoxetine HCL [PROzac] 40 mg PO DAILY 11/11/16 [History] Acetaminophen [Tylenol] 1,000 mg PO Q4-6H PRN 09/27/21 [History] Ascorbic Acid [Vitamin C] 1,000 mg PO DAILY 09/27/21 [History] Cholecalciferol [Vitamin D3 (25 Mcg = 1000 Iu)] 25 mcg PO DAILY 09/27/21 [History] Cyanocobalamin [Vitamin B-12 Injection] 1,000 mcg SQ Q30D 09/27/21 [History] Vitamin B Complex 1 cap PO DAILY 09/27/21 [History] lamoTRIgine [LaMICtal] 200 mg PO BID 09/27/21 [History] Aspirin EC [Ecotrin Low Dose] 81 mg PO DAILY 30 Days #30 tab 09/29/21 [Rx] Atorvastatin [Lipitor] 20 mg PO DAILY 30 Days #30 tablet 09/29/21 [Rx] Omeprazole 20 mg PO DAILY #30 cap 09/29/21 [Rx] Pyridostigmine [Mestinon] 30 mg PO DAILY 30 Days #30 tab 09/29/21 [Rx] Follow up Appointment(s)/Referral(s): Modesto Bowman MD [Primary Care Provider] - 1-2 days Patient Instructions/Handouts: Altered Mental Status (ED) Discharge Disposition: HOME SELF-CARE
--- NOTE | 2021-10-01 11:01 | ECHOF ---
Referral Reason:TIA MEASUREMENTS -------- HEIGHT: 162.6 cm WEIGHT: 99.8 kg BP: 104/66 IVSd: 1.2 cm (0.6 - 1.1) LVIDd: 4.2 cm (3.9 - 5.3) LVPWd: 1.1 cm (0.6 - 1.1) EDV(Teich): 80 ml IVSs: 1.7 cm LVIDs: 2.8 cm LVPWs: 1.6 cm %IVS Thck: 42 % ESV(Teich): 29 ml EF(Teich): 64 % %FS: 34 % SV(Teich): 51 ml LA Diam: 2.8 cm (2.7 - 3.8) RVIDd: 3.1 cm (< 3.3) Ao Diam: 2.8 cm (2.0 - 3.7) EPSS: 0.3 cm MV E Wilfredo: 0.80 m/s MV DecT: 152 ms MV Dec Harper: 5.3 m/s MV A Wilfredo: 0.61 m/s MV E/A Ratio: 1.31 MV PHT: 44 ms AV Vmax: 1.09 m/s AV maxP.71 mmHg MV EF SLOPE: 114.82 mm/s (70 - 150) MV EXCURSION: 20.48 mm (> 18.000) FINDINGS -------- Sinus rhythm. This was a technically adequate study. The left ventricular size is normal. There is borderline concentric left ventricular hypertrophy. Overall left ventricular systolic function is normal with, an EF between 60 - 65 %. The right ventricle is normal in size. The left atrium is normal in size. The right atrium is normal in size. Interatrial and interventricular septum intact. The aortic valve is trileaflet, and appears structurally normal. No aortic stenosis or regurgitation. There is trace mitral regurgitation. The tricuspid valve appears structurally normal. Unable to estimate RVSP due to inadequate TR jet s pectral doppler profile. The pulmonic valve is normal. The aortic root size is normal. IVC Not well visulized. There is no pericardial effusion. CONCLUSIONS -------- 1. The left ventricular size is normal. 2. There is borderline concentric left ventricular hypertrophy. 3. Overall left ventricular systolic function is normal with, an EF between 60 - 65 %. 4. There is trace mitral regurgitation. 5. There is no pericardial effusion. PRODUCTION GRAPHIC DESIGNER: Wanda Jhaveri RDCS
== END 2021-09-29 13:05 | disposition home or self-care (01) ==
LOC: EC 08:31 → 6NMEDSUR 11:12
PROVIDERS: ADMIT Hospitalist; ATTEND Hospitalist
DX: R47.81 Slurred speech (principal); R42 Dizziness and giddiness; H81.10 Benign paroxysmal vertigo, unspecified ear; G70.01 Myasthenia gravis with (acute) exacerbation; F31.81 Bipolar II disorder; T44.0X6A Underdosing of anticholinesterase agents, initial encounter; Z91.19 Patient's noncompliance with other medical treatment and regimen; Z91.128 Patient's intentional underdosing of medication regimen for other reason; Z79.899 Other long term (current) drug therapy; K21.9 Gastro-esophageal reflux disease without esophagitis; D64.9 Anemia, unspecified; G61.0 Guillain-Barre syndrome; R41.82 Altered mental status, unspecified; R11.0 Nausea; H53.8 Other visual disturbances; R61 Generalized hyperhidrosis; Z71.9 Counseling, unspecified; Z81.8 Family history of other mental and behavioral disorders
CPT/HCPCS: 96361 ×3; 96372 ×3; 96360; 99285; 36415; 93005; 93306; 80061; 80053 ×2; 84443; 82607; 82140; 83735; 84484; 85025 ×2; 85610; 85730; 81003; 83721; 82306; 80306; 80320; 83036; 71046; 93880; 70450; 70551; G0378 ×3; J3420; J1650 ×2

== ENCOUNTER → 2022-10-02 | Outpatient (CLI) | payer MEDICAID ==
[2022-10-02 22:50] LABS: Basophils # (A) 0.04 X 10*3/uL (0.00-0.10); Basophils % (A) 0.6 %; Eosinophils # (A) 0.19 X 10*3/uL (0.04-0.35); Eosinophils % (A) 2.8 %; HCT 37.9 % (37.2-46.3); HGB 12.4 g/dL (12.0-15.0); Immature Grans, Automated 0.1 %; Lymphocytes # (A) 2.81 X 10*3/uL (0.90-5.00); Lymphocytes % (A) 41.7 %; MCH 30.4 pg (27.0-32.0); MCHC 32.7 g/dL (32.0-37.0); MCV 92.9 fL (80.0-97.0); Mean Platelet Volume 9.9 fL (9.5-12.2); Monocytes # (A) 0.38 X 10*3/uL (0.20-1.00); Monocytes % (A) 5.6 %; NRBC Per 100 WBC 0 /100 WBCS (0.0-0.0); Neutrophils # (A) 3.31 X 10*3/uL (1.80-7.70); Neutrophils % (A) 49.2 %; Platelet Count 278 X 10*3/uL (140-440); RBC 4.08 X 10*6/uL (4.10-5.20); RDW 13.5 % (11.5-14.5); WBC 6.74 X 10*3/uL (4.50-10.00)
== END | disposition home or self-care (01) ==
LOC: LABWHC1 15:24
PROVIDERS: ATTEND Family Medicine
DX: E53.8 Deficiency of other specified B group vitamins (principal); G70.00 Myasthenia gravis without (acute) exacerbation
CPT/HCPCS: 36415; 82607; 85025

== ENCOUNTER → 2023-08-16 | Outpatient (CLI) | payer MEDICAID ==
--- NOTE | 2023-08-17 17:06 | MR ---
EXAMINATION TYPE: MR brain wo con DATE OF EXAM: 08/16/2023 COMPARISON: 09/29/2021 HISTORY: Hx of a stroke 2 years ago and dizziness CONTRAST: Performed utilizing 0 mL intravenous Gadavist gadolinium contrast. TECHNIQUE: Multiplanar, multiecho imaging on a 3.0 Piedad magnet is performed through the brain. Stud y is performed within 24 hours of arrival to the hospital. The craniovertebral junction is normal. The pituitary is normal. Optic chiasm appears normal. Diffusion-weighted imaging is performed. No abnormal hyperintensity is present to suggest an acute i ntracranial infarct or acute ischemic change. No suspicious signal change evident. No residual changes from prior patient stroke. Ventricles and sulci are appropriate for the patient age. IMPRESSION: 1. No acute intracranial process. Follow-up studies can be performed as clinically indicated.
== END | disposition home or self-care (01) ==
LOC: RADMRIMAIN 15:33
PROVIDERS: ATTEND Psychiatry & Neurology Neurology
DX: G70.00 Myasthenia gravis without (acute) exacerbation (principal); R41.3 Other amnesia; R42 Dizziness and giddiness
CPT/HCPCS: 70551

== ENCOUNTER → 2023-10-11 | Outpatient (CLI) | payer MEDICAID ==
--- NOTE | 2023-10-11 09:31 | MM ---
Reason for Exam: Screening (asymptomatic). Last mammogram was performed 9 year(s) and 4 month(s) ago. Patient History: Menarche at age 10. First Full-Term at age 25. Perimenopausal. Hormonal Contraceptives for 6 years from age 13 until age 19. Paternal grandmother had breast cancer, age 50. Risk Values: Violetta 5 year model risk: 1.1%. NCI Lifetime model risk: 9.9%. Prior Study Comparison: 02/29/2012 Bilateral Screening Mammogram, [facility]. 06/07/2014 Bilateral Screening Mammogram, [facility]. Tissue Density: The breasts are heterogeneously dense, which may obscure small masses. Findings: Analyzed By CAD. There is no suspicious group of microcalcifications or new suspicious mass in either breast. Small nodule seen in the upper outer quadrant of the left breast on tomographic images most likely related to benign small lymph node. Measures 3 mm. Overall Assessment: Incomplete: need additional imaging evaluation, BI-RAD 0 Management: Diagnostic Breast Ultrasound of the left breast. . Patient should continue monthly self-breast exams. A clinical breast exam by your physician is recommended on an annual basis. This exam should not preclude additional follow-up of suspicious palpable abnormalities. Note on Violetta scores and lifetime risk: 1. A Violetta score greater than 3% is considered moderate risk. If this is the case, consider specialist referral to assess eligibility for a risk reducing agent. 2. If overall lifetime risk for the development of breast cancer is 20% or higher, the patient may qualify for future screening with alternating mammogram and breast MRI. Electronically signed and approved by: Sukhi Koch M.D. Radiologis
== END | disposition home or self-care (01) ==
LOC: RADMAMWWP 08:04
PROVIDERS: ATTEND Obstetrics & Gynecology
DX: Z12.31 Encounter for screening mammogram for malignant neoplasm of breast (principal); Z80.3 Family history of malignant neoplasm of breast
CPT/HCPCS: 77063; 77067

== ENCOUNTER → 2023-10-11 | Outpatient (CLI) | payer MEDICAID ==
--- NOTE | 2023-10-17 14:19 | CT ---
EXAMINATION TYPE: CT sinus wo con CT DLP: 566 mGycm, Automated exposure control for dose reduction was used. DATE OF EXAM: 10/11/2023 8:57 AM COMPARISON: . CLINICAL INDICATION:Female, 48 years old with history of J32.0 chronic sinusitis; , Chronic sinusitis TECHNIQUE: Multiple thin axial images were obtained through the paranasal sinuses without the use of IV contrast. Additional coronal and sagittal reformatted images were submitted for evaluation. Contrast used: none Oral contrast used: none FINDINGS: Frontal sinuses: Normally developed and aerated. Frontal Recess: Clear Maxillary Sinuses: Normally developed and aerated. Maxillary Infundibula([facility]): Patent, no Louisa cells identified. Ethmoid sinuses: Normally developed and aerated. Ethmoidal notch: Protected and abutting the lateral lamina. Sphenoid sinuses: Normally developed and aerated. There is incomplete sellar sphenoid sinus pneumatiz ation without evidence of dehiscence. No dehiscence of carotid canal. No evidence of optic nerve deh iscence within the sphenoid sinus. Sphenoethmoidal recesses: Clear. Nasal septum: Minimal S-shaped deviation of its mid to superior aspect, towards the right anteriorly and towards the left posteriorly.. Nasal Turbinates: Within normal limits. Mastoid air cells & middle ears: The air cells are clear. The middle ears are grossly unremarkable. Modified Soft tissues & Brain: Partially seen without gross abnormality. Globes are intact. No intrao rbital mass lesion. Other: Cribriform plate demonstrates symmetric Keros classification type 2 cribriform plate. No evidence of bony dehiscence of skull base. Lamina papyracea is intact without evidence of remote orbital fracture or orbital prolapse into the e thmoid sinus. Joanna aneta is nonpneumatized. IMPRESSION: 1. No significant paranasal sinus mucosal disease. 2. The ostiomeatal units, frontonasal and sphenoethmoidal recesses are clear.
== END | disposition home or self-care (01) ==
LOC: RADCTMAIN 08:03
PROVIDERS: ATTEND Otolaryngology
DX: J32.0 Chronic maxillary sinusitis (principal)
CPT/HCPCS: 70486

== ENCOUNTER → 2023-10-22 | Outpatient (CLI) | payer MEDICAID ==
--- NOTE | 2023-10-22 13:55 | USB ---
Reason for Exam: Additional evaluation requested from abnormal screening. Patient History: Menarche at age 10. First Full-Term at age 25. Perimenopausal. Hormonal Contraceptives for 6 years from age 13 until age 19. Paternal grandmother had breast cancer, age 50. Risk Values: Violetta 5 year model risk: 1.1%. NCI Lifetime model risk: 9.9%. Technique: Method: Whole Breast Handheld. Prior Study Comparison: 11/28/2020 Bilateral Screening Mammogram, [facility]. 03/04/2022 Bilateral Screening Mammogram, [facility]. 10/11/2023 Bilateral MG 3D screening mammo w/cad, [facility]. Findings: The upper outer quadrant of the left breast, the axilla of the left breast and the retroareolar of the left breast were scanned. Hypoechoic lesion left 2:00 position 9 cm from the nipple measuring 3 x 4 mm too small to appropriately characterize and could reflect a small intramammary lymph node versus complex cyst. Six-month follow-up is recommended.. Overall Assessment: Probably benign, BI-RAD 3 Management: Diagnostic Breast Ultrasound of the left breast. A clinical breast exam by your physician is recommended on an annual basis and results should be correlated with mammographic findings. This exam should not preclude additional follow-up of suspicious palpable abnormalities. Results were given to the patient verbally at the time of exam. Electronically signed and approved by: Marko Sanders M.D. Radiologis
== END | disposition home or self-care (01) ==
LOC: RADUSWWP 13:12
PROVIDERS: ATTEND Obstetrics & Gynecology
DX: R92.8 Other abnormal and inconclusive findings on diagnostic imaging of breast (principal); N63.21 Unspecified lump in the left breast, upper outer quadrant; Z80.3 Family history of malignant neoplasm of breast

== ENCOUNTER → 2024-05-19 | Outpatient (CLI) | payer MEDICAID ==
--- NOTE | 2024-05-19 09:48 | USB ---
Reason for Exam: Follow-up at short interval from prior study. Patient History: Menarche at age 10. First Full-Term at age 25. Perimenopausal. Hormonal Contraceptives for 6 years from age 13 until age 19. Paternal grandmother had breast cancer, age 50. Risk Values: Violetta 5 year model risk: 1.1%. NCI Lifetime model risk: 9.9%. Technique: Method: Targeted. Prior Study Comparison: 11/28/2020 Bilateral Screening Mammogram, [facility]. 03/04/2022 Bilateral Screening Mammogram, [facility]. 10/11/2023 Bilateral MG 3D screening mammo w/cad, [facility]. Findings: The upper outer quadrant of the left breast, the axilla of the left breast and the retroareolar of the left breast were scanned. Ultrasound upper outer quadrant left breast 12:00 to 3:00 including scanning of the subareolar region and axilla. The previous tiny intramammary lymph node versus small cyst cluster is no longer appreciated. No suspicious enlarging mass is seen. No axillary lymphadenopathy. Overall Assessment: Benign, BI-RAD 2 Management: Screening Mammogram of both breasts in 6 months. A clinical breast exam by your physician is recommended on an annual basis and results should be correlated with mammographic findings. This exam should not preclude additional follow-up of suspicious palpable abnormalities. Results were given to the patient verbally at the time of exam. [facility], , 05/19/2024 9:12 AM . Electronically signed and approved by: Phillip Gregg M.D. Radiologist
== END | disposition home or self-care (01) ==
LOC: RADUSWWP 08:27
PROVIDERS: ATTEND Obstetrics & Gynecology
DX: R92.8 Other abnormal and inconclusive findings on diagnostic imaging of breast (principal); Z80.3 Family history of malignant neoplasm of breast